=== PATIENT | female | born 1965 | race Caucasian/White ===

== ENCOUNTER 2016-03-25 16:00 | Emergency (ER) | payer OTHER, MEDICAID ==
[~2016-03-25] VITALS: Ht 157.5 cm; Wt 49.9 kg
[2016-03-25 16:18] VITALS: BP 102/64; PULSE 113; RESP 18; TEMP 97.5; O2SAT 96
--- NOTE | 2016-03-25 16:31 | NUR ---
Patient to ER bed 06 to gown for evaluation. Side rails up. Report given to Uday.
--- NOTE | 2016-03-25 16:40 | NUR ---
ER at bedside examining patient.
--- NOTE | 2016-03-25 16:45 | NUR ---
PT BIB [facility] FACILITY C/O N/V WITH EVERY MEAL SINCE YESTERDAY. PT H/O MR.
[2016-03-25] MEDS ORDERED: ONDANSETRON HCL 4 MG/2 ML VIAL IVP ONE (17:00)
[2016-03-25 17:15] LABS: BASOPHILS # (AUTO) 0.2 K/uL (0.0-0.2); BASOPHILS % (AUTO) 2.9 % (0.0-2.0); EOSINOPHILS % (AUTO) 0.2 % (0.0-4.0); HEMATOCRIT 35.6 % (36-48); HEMOGLOBIN 12.2 g/dL (12.0-16.0); LYMPHOCYTES # (AUTO) 1.1 K/uL (1.0-5.5); MEAN CORPUSCULAR HEMOGLOBIN 31 pg (27-31); MEAN CORPUSCULAR HGB CONC 34 % (32-36); MEAN CORPUSCULAR VOLUME 91 fL (79.0-98.0); MONOCYTES # (AUTO) 0.6 K/uL (0.0-1.0); MONOCYTES % (AUTO) 8.2 % (1.7-9.3); NEUTROPHILS % (AUTO) 72.7 % (40.0-70.0); PLATELET COUNT (AUTO) 118 K/uL (130-430); RED BLOOD CELL COUNT(AUTO) 3.92 MIL/uL (4.2-6.2); RED CELL DISTRIBUTION WIDTH 12.2 % (9.0-15.0); WHITE BLOOD COUNT (AUTO) 6.9 K/uL (4.8-10.8)
--- NOTE | 2016-03-25 17:30 | NUR ---
PT UNCOOPERATIVE W/IV START. ANOTHER RN ASKED FOR ASSIST.
[2016-03-25 17:43] LABS: CALCIUM 9.1 mg/dL (8.4-11.0); CREATININE 1.01 mg/dL (0.55-1.30); POTASSIUM 3.8 mmol/L (3.5-5.1)
[2016-03-25] MEDS ORDERED: NACL 0.9% 1,000 ML IV ONE (17:45)
[2016-03-25 17:49] LABS: ALBUMIN 3.6 g/dL (3.4-4.8); TOTAL BILIRUBIN 0.3 mg/dL (0.0-1.0); TOTAL PROTEIN, SERUM 7.4 g/dL (6.4-8.3)
--- NOTE | 2016-03-25 17:54 | NUR ---
Medicated per MD orders. IVF infusing to left wrist with no s/x of infiltration at this time. [employer] at bedside.
[2016-03-25 19:56] VITALS: BP 102/64; PULSE 87; RESP 18; TEMP 97.5; O2SAT 96
--- NOTE | 2016-03-25 19:56 | NUR ---
Patient given written and verbal discharge instructions and verbalizes understanding. ER MD discussed with patient the results and treatment provided. Patient in stable condition. ID arm band removed. IV catheter removed intact and dressing applied, no active bleeding. Rx of ZOFRAN 8 MG ODT given. Patient educated on pain management and to follow up with PMD. Pain Scale 0/10. Opportunity for questions provided and answered.
== END 2016-03-25 19:56 | disposition home or self-care (01) ==
LOC: SED 16:00
DX: K80.70 Calculus of gallbladder and bile duct without cholecystitis without obstruction (principal)
CPT/HCPCS: 36415; 74176; 80053; 82150; 83690; 85025; 96361; 96374; 99285; J2405; J7030